=== PATIENT | male | born 1995 | race Caucasian/White ===

== ENCOUNTER 2023-08-09 00:16 | Emergency (ER) | payer SELFPAY ==
[~2023-08-09] VITALS: Ht 160 cm; Wt 86.2 kg
[2023-08-09 00:21] VITALS: BP_SYST 134; PULSE 75; RESP 16; TEMP 97.1; O2SAT 97
[2023-08-09] MEDS: NACL 0.9% 1,000 ML IV ONE (02:06)
[2023-08-09] MEDS: KETOROLAC TROMETHAMINE 30 MG VIAL IVP ONE (02:13)
[2023-08-09 02:55] VITALS: BP_SYST 130; PULSE 76; RESP 20; TEMP 98; O2SAT 98
== END 2023-08-09 02:55 | disposition home or self-care (01) ==
LOC: SED 00:16
DX: B34.9 Viral infection, unspecified (principal); Z20.822 Contact with and (suspected) exposure to COVID-19
CPT/HCPCS: 99284; 96374; 71045; 96361; 87426; 36415; J1885; J7030